=== PATIENT | female | born 1970 | race Asian ===

== ENCOUNTER 2021-06-07 14:50 | Outpatient (REF) | payer MEDICAID, SELFPAY ==
--- NOTE | ~2021-06-07 | MM_ITS ---
EXAMINATION: MM SCREENING DIGITAL BREAST TOMOSYNTHESIS, BILATERAL CLINICAL INFORMATION: Screening. Asymptomatic. The lifetime risk of breast cancer based on the Tyrer-Cuzick Model is 15%. COMPARISON: Mammography: 04/16/2018, 01/22/2017, 12/17/2014 (baseline). TECHNIQUE: Digital breast tomosynthesis is performed in both the craniocaudal and mediolateral oblique views along with computer-aided detection (CAD). Synthesized 2D images are generated from the tomosynthesis. FINDINGS: There are scattered areas of fibroglandular density (ACR BI-RADS breast composition Category b). There is fine fibronodular pattern with scattered shifting fibroglandular parenchymal densities overall similar to prior studies. There is no developing density or significant mass or architectural abnormality or abnormal calcifications. The axilla and skin contours are unremarkable. MM/MM tomosynthesis screening BI IMPRESSION: No mammographic evidence of malignancy. ASSESSMENT: BI-RADS 2: Benign RECOMMENDATION: Routine annual mammography screening. This patient's information was entered into a reminder system with a target due date for their next mammogram.
== END 2021-06-07 14:51 | disposition home or self-care (01) ==
LOC: HO.MAMMO 14:50
PROVIDERS: PCP Internal Medicine; Visit Provider Internal Medicine
DX: Z12.31 Encounter for screening mammogram for malignant neoplasm of breast (principal)
CPT/HCPCS: 77063; 77067

== ENCOUNTER → 2022-01-09 10:08 | Outpatient (BNVA) | payer MEDICAID, SELFPAY | PROVIDERS: PCP Internal Medicine; Visit Provider Nurse Practitioner Family | DX: Z12.11 Encounter for screening for malignant neoplasm of colon (principal); K21.9 Gastro-esophageal reflux disease without esophagitis | CPT/HCPCS: 99202 ==

== ENCOUNTER 2022-06-12 14:47 | Outpatient (REF) | payer MEDICAID, SELFPAY ==
--- NOTE | ~2022-06-12 | MM_ITS ---
EXAMINATION: MM SCREENING DIGITAL BREAST TOMOSYNTHESIS, BILATERAL CLINICAL INFORMATION: Screening. Asymptomatic. The lifetime risk of breast cancer based on the Tyrer-Cuzick Model is 11%. COMPARISON: Mammography: 06/07/2021, 04/16/2018, 01/22/2017, 12/17/2014 TECHNIQUE: Digital breast tomosynthesis is performed in both the craniocaudal and mediolateral oblique views along with computer-aided detection (CAD). Synthesized 2D images are generated from the tomosynthesis. FINDINGS: There are scattered areas of fibroglandular density (ACR BI-RADS breast composition Category b). There are no significant masses, abnormal calcifications, or other abnormalities. No architectural abnormality or developing density or significant change from prior studies. Again, there are scattered minor asymmetries. The axilla and skin contours are unremarkable. MM/MM tomosynthesis screening BI IMPRESSION: No mammographic evidence of malignancy. ASSESSMENT: BI-RADS 2: Benign RECOMMENDATION: Routine annual mammography screening. This patient's information was entered into a reminder system with a target due date for their next mammogram.
== END 2022-06-12 14:48 | disposition home or self-care (01) ==
LOC: HO.MAMMO 14:47
PROVIDERS: PCP Internal Medicine; Visit Provider Internal Medicine
DX: Z12.31 Encounter for screening mammogram for malignant neoplasm of breast (principal)
CPT/HCPCS: 77063; 77067

== ENCOUNTER 2022-09-01 12:46 | Outpatient (REF) | payer MEDICAID, SELFPAY ==
--- NOTE | ~2022-09-01 | US_ITS ---
EXAMINATION: US PELVIS CLINICAL INFORMATION: IUD check, history of fibroids, postmenopausal COMPARISON: None available. TECHNIQUE: Ultrasound of the pelvis is performed using both transabdominal and transvaginal transducers along with Doppler. Transvaginal imaging is performed due to inadequate visualization transabdominally. FINDINGS: Uterus: The uterus is anteverted and measures 7.9 x 3.3 x 4.3 cm. The double wall endometrial thickness is 4 mm. Intrauterine device is in appropriate position within the endometrial canal. The uterus is smooth in contour and has normal myometrial echogenicity. Fundal subserosal fibroid measures 1.3 cm. A lower uterine segment subserosal fibroid measures 2.6 cm. Adnexa: Both ovaries are visualized. There is normal color flow to the adnexa. There is no ovarian torsion. There is no pelvic ascites or fluid collection. Right ovary measures 2.3 x 1.4 x 1.3 cm. Left ovary measures 2.0 x 1.3 x 1.6 cm. US/US pelvic and transvaginal IMPRESSION: * Intrauterine device is in appropriate position within the endometrial canal. * Uterine fibroids.
== END 2022-09-01 12:47 | disposition home or self-care (01) ==
LOC: HO.HMGCX 12:46
PROVIDERS: PCP Internal Medicine; Visit Provider Advanced Practice Midwife
DX: D21.9 Benign neoplasm of connective and other soft tissue, unspecified (principal)
CPT/HCPCS: 76830; 76856

== ENCOUNTER 2022-12-01 07:01 | Day surgery (SDC) | payer MEDICAID, SELFPAY ==
[2022-11-29 12:02] VITALS: BMI 29.8
--- NOTE | 2022-11-30 09:11 | HO.ANESPROP2 ---
Documented by User: Ashley Orourke NP 11/30/22 09:11 HPI - Anesthesia Eval Consult details Narrative: 51yo F for Upper Endoscopy and Colonoscopy [facility] Past Medical History Medical History (Updated 11/29/22 @ 12:01 by Vanessa Perry RN) No known health problems Surgical History Surgical History (Updated 11/29/22 @ 12:00 by Vanessa Perry RN) History of esophagogastroduodenoscopy (EGD) Hx of section Social History Social History (Updated 01/09/22 @ 10:35 by Camilo Lopez) Household Members: Significant Other Alcohol intake: never Patient Tobacco Use Status: Never used Tobacco Tobacco use type: Cigarette Meds Allergies Allergy/AdvReac Type Severity Reaction Status Date / Time No Known Allergies Allergy Verified 01/09/22 10:34 [No Known Allergies*] Exam Exam Date and Time: November 30, 2022 0911 Height,Weight and Vital Signs: Height 5 ft 3 in Weight 76.204 kg Assessment and Plan Assessment Anesthesia Assessment: Chart Reviewed Documented by User: Angi Castro MD 12/01/22 08:22 [facility] Past Medical History Medical History (Updated 11/29/22 @ 12:01 by Vanessa Perry RN) No known health problems Family History Family history of problems with anesthesia: No Surgical History Surgical History (Updated 11/29/22 @ 12:00 by Vanessa Perry RN) History of esophagogastroduodenoscopy (EGD) Hx of section History of Problems with Anesthesia: No Social History Social History (Updated 01/09/22 @ 10:35 by Camilo Lopez) Household Members: Significant Other Alcohol intake: never Patient Tobacco Use Status: Never used Tobacco Tobacco use type: Cigarette Meds Allergies Allergy/AdvReac Type Severity Reaction Status Date / Time No Known Allergies Allergy Verified 01/09/22 10:34 [No Known Allergies*] Exam Airway Mallampati Class: II TM Dist: >3cm Neck ROM: Full Heart: rrr Lungs: cta Assessment and Plan Assessment Anesthesia Assessment: Anesthesia Plan Discussed Final Anesthetic Review Family History of Problems with Anesthesia: No History of Problems with Anesthesia: No NPO: Yes ASA Class: I Final Preanesthetic Review: No Changes in Pt Med Stat, Meds/Allgs Chart Reviewed and Consent Obtained/Reviewed Patient Risk: Intermediate Procedure Risk: Intermediate Anesthetic Plan Anesthetic Plan: MAC: Disposition: Standard PACU
[2022-12-01 07:35] VITALS: BP 122/70; PULSE 86; RESP 16; TEMP 36.8; O2SAT 98; BMI 30.5
[2022-12-01 07:41] VITALS: BMI 30.5
--- NOTE | 2022-12-01 07:53 | MHC.SHP ---
Pre-Procedural Eval Section A Date of Service: 12/01/22 The patient is an INPATIENT: No The History & Physical has been completed within 30 days and I have reviewed it.: No Section B Chief Complaint: gerd,screening, Relevant Family History (Specify if Yes): No Relevant Social History: None Present Medications: see Short Stay Collaborative assessment Medical History: No relevant PMH History of Previous Operations: Relevant previous surgery/procedure and date(s) (Hx of section) Allergies: Allergies Allergy/AdvReac Type Severity Reaction Status Date / Time No Known Allergies Allergy Verified 01/09/22 10:34 [No Known Allergies*] Review of Systems Sugical H&P ROS: Negative: Constitution, Cardiovascular, Respiratory and Gastrointestinal Exam Surgical H&P Exam: Normal: Heart, Normal: Lungs, Normal: Extremities and Normal: Abdomen Plan Diagnosis/Plan: Unchanged I have reviewed the history and physical and performed a pertinent physical examination on my patient. No changes have occurred unless specified. Time Spent With Patient Time: Total time managing care of this patient today ____ minutes.
[2022-12-01] MEDS: Lactated Ringers 1,000 ML 100 ML IVCONT (07:54)
--- NOTE | 2022-12-01 08:31 | P.OP_ITS ---
Operative Note Operative Note Date of Service: 12/01/22 Narrative: FLEXIBLE TRANSORAL UPPER GASTROINTESTINAL ENDOSCOPY WITH BIOPSIES AND COLONOSCOPY TILL CECUM Pre-op diagnosis: Colon cancer screening, GERD, abdominal bloating, history of H pylori infection Post-op diagnosis: Gastritis, gastric ulcer, diverticulosis? Endoscopist:? Jake Costa MD Anesthesia:?MAC UPPER ENDOSCOPY Consent: Indications for the procedure and potential complications of bleeding, perforation, reaction to medications and missed diagnosis were discussed with the patient and informed consent was obtained. Instrument: Olympus GIF H 190 mid size upper endoscope Monitoring: Vital signs and clinical assessment, continuous EKG monitoring, Pulse oximetry, Carbon Dioxide monitoring and blood pressure monitoring were done throughout the procedure. Procedure: The patient was placed in the left lateral decubitis position and pre-procedure medications were administered and a bite block was placed. The endoscope was inserted into the mouth and advanced under direct vision to the third part of duodenum. A careful inspection was made as the upper endoscope was withdrawn including a retroflexed examination of the proximal stomach; Findings and interventions are described below. Findings: Larynx: Normal Esophagus: GE junction at 35 cms. No esophagitis or Bee's. Stomach: Two 6-7 mm ulcers in the gastric antrum - biopsied. Moderate gastric erythema. Biopsies were obtained to check for H pylori. Grade 2 flap valve on retroflexed examination of the cardia. Duodenum: Normal bulb and descending duodenum Intervention: Biopsies as noted above COLONOSCOPY PROCEDURE NOTE Consent: Indications for the procedure and potential complications of bleeding, perforation, reaction to medications and missed diagnosis were discussed with the patient and informed consent was obtained. Instrument: Olympus PCF H 190 L variable stiffness pediatric colonoscope Monitoring: Vital signs and clinical assessment, intermittent blood pressure monitoring, continuous EKG monitoring, Pulse oximetry and Carbon Dioxide monitoring were done throughout the procedure. Colon withdrawl time was 15 minutes. Procedure: The patient was placed in the left lateral decubitis position and pre-procedure medications were administered. After a digital rectal examination of the ano-rectum, the video colonoscope was inserted into the rectum and advanced through the colon to the cecum. The colonoscope was slowly withdrawn in a retrograde panoramic fashion and the colon mucosa was carefully examined including a retroflexed view of the rectum. Findings and interventions are described below. Procedure Difficulty: : Without difficulty Findings: Terminal Ileum: Not evaluated Cecum: Normal Ascending Colon: Normal Transverse Colon: Normal Descending Colon: moderate diverticulosis Sigmoid Colon: Moderate diverticulosis Rectum: Normal Ano-rectum: Normal Colon preparation: Good after copious irrigation Impression and Post Procedure Diagnosis: Endoscopy Findings: STOMACH: Two 6-7 mm ulcers in the gastric antrum - biopsied. Moderate gastric erythema. Biopsies were obtained to check for H pylori. Colonoscopy Findings: No polyps were detected Moderate diverticulosis seen in the left colon Plan: Await pathology results Patient has an appointment on 12/15/22 in the GI [facility] with Rama Prince FNP- [facility]. Repeat Colonoscopy in 10 years. Above findings were reviewed with the patient and PUD and diverticulosis handouts were given in the discharge area Pt advised to start Omeprazole 20 mg daily for gastric ulcer Repeat EGD in 3-4 months to confirm gastric ulcer has healed. (Of Note H pylori stool antigen was checked in Apr, 2018 and was negative).
[2022-12-01 09:22] VITALS: BP 125/80; PULSE 96; RESP 16; TEMP 36.2; O2SAT 97
[2022-12-01 09:37] VITALS: BP 131/75; PULSE 94; RESP 16; TEMP 36.2; O2SAT 99
== END 2022-12-01 10:05 | disposition home or self-care (01) ==
PROVIDERS: PCP Internal Medicine; Visit Provider Internal Medicine Gastroenterology
PROC: (CPT 45378; principal; 2022-12-01 08:30)
DX: Z12.11 Encounter for screening for malignant neoplasm of colon (principal); K57.30 Diverticulosis of large intestine without perforation or abscess without bleeding; K21.9 Gastro-esophageal reflux disease without esophagitis; K29.50 Unspecified chronic gastritis without bleeding; K25.9 Gastric ulcer, unspecified as acute or chronic, without hemorrhage or perforation; Z86.19 Personal history of other infectious and parasitic diseases
CPT/HCPCS: 45378; 43239; 88305; 88342

== ENCOUNTER → 2022-12-01 07:01 | Outpatient (BNV) | payer MEDICAID, SELFPAY | PROVIDERS: PCP Internal Medicine; Visit Provider Internal Medicine Gastroenterology | DX: Z12.11 Encounter for screening for malignant neoplasm of colon (principal); K21.9 Gastro-esophageal reflux disease without esophagitis; K57.30 Diverticulosis of large intestine without perforation or abscess without bleeding; K25.9 Gastric ulcer, unspecified as acute or chronic, without hemorrhage or perforation | CPT/HCPCS: 43239; 45378 ==

== ENCOUNTER 2022-12-15 09:22 | Outpatient (AMB) | payer MEDICAID, SELFPAY ==
[2022-12-15 09:38] VITALS: BP 114/72; PULSE 82; BMI 31.0
--- NOTE | 2022-12-15 09:38 | MHC.OFFVIS ---
Intake Vital Signs 12/15/22 09:38 Height 5 ft 3 in Weight 175 lb 0.752 oz BMI 31.0 BP 114/72 Blood Pressure Location Rt brachial Position Sitting Pulse 82 Intake Visit Reasons: S/p egd/colon-Igor Intake Note: Radha presents in office as a est.patient for a post-op f/u for COLO/EGD pt got it done 12.01.22 PT CC: She c/o abdominal pain after meals. She states she has never had back pain before and has been having lower back pain since after procedure. She reports she is now having 2-3 BMs daily, and she is suddenly gaining weight. [employer] Required: No Accompanied by: Self / Same As Patient Allergies No Known Allergies [No Known Allergies*] Allergy (Verified 01/09/22 10:34) HPI S/p egd/colon-Igor HPI Details LAST VISIT Screen for colon cancer Patient denies any cardiac or respiratory symptoms.? Occasional symptoms of acid reflux, patient uses [id number] famotidine. History of H pylori in 2018, treated with antibiotics. Denies any issues with anesthesia in the past.? Denies any history of sleep apnea.? No history infectious diseases in the past or present.? Not on any anticoagulation therapy.? No family or personal history of colon cancer or polyps.? Patient denies melena, hematochezia, unintentional weight loss or ribbon like stools.? Discussed at length the pre-procedure,? prep, diet & medications as well as what to expect prior, during and after the procedure.?? Stressed the importance of good bowel prep. ?Recommended the use of Vaseline or Calmoseptine OTC & baby wipes with bowel movements to promote comfort.? ?Patient verbalizes understanding and agrees to plan of care.? She was given the opportunity to ask questions and all questions answered.? We will see her after the procedure.? GERD (gastroesophageal reflux disease) Patient reports occasional acid reflux. Patient denies any dyspepsia, dysphagia or odynophagia. Patient reports that she was treated for H pylori in 2018. H pylori was found on upper endoscopy. Patient reports that she is avoiding dietary triggers as much as possible. Occasionally uses [id number]-[id number] famotidine. Discussed with patient the importance of avoiding dietary triggers in late night snacking. Staying upright for minimal 3 hours after meals. Patient will return after colonoscopy and upper endoscopy to see me. I will send her for H pylori testing and we will treat her empirically if positive. Patient is agreeable to this plan and verbalizes understanding of instruction. She was given the opportunity to ask questions and all questions answered. ? Thank you for allowing me to participate in her care Plan Orders Orders H pylori Ag Stool 01/09/22 K21.9 Medications New bisacodyl (Dulcolax (bisacodyl)) take 2 tabs at noon the day before your colonoscopy 10 mg (2 x 5 mg) PO ONCE 1 day 2 tabs 0RF Z12.11 polyethylene glycol 3350 (Miralax) As directed by gastroenterology department at [facility] 238 grams PO ONCE 238 grams 0RF Z12.11 hydrocortisone 2.5% (Proctosol HC) 1 appl PA BID-QID PRN 30 grams 0RF hemorrhoids UPPER ENDOSCOPY AND COLONOSCOPY Findings: Larynx: Normal Esophagus: GE junction at 35 cms. No esophagitis or Bee's. Stomach: Two 6-7 mm ulcers in the gastric antrum - biopsied. Moderate gastric erythema. Biopsies were obtained to check for H pylori. Grade 2 flap valve on retroflexed examination of the cardia. Duodenum: Normal bulb and descending duodenum Intervention: Biopsies as noted above Procedure Difficulty: : Without difficulty Findings: Terminal Ileum: Not evaluated Cecum: Normal Ascending Colon: Normal Transverse Colon: Normal Descending Colon: moderate diverticulosis Sigmoid Colon: Moderate diverticulosis Rectum: Normal Ano-rectum: Normal Colon preparation: Good after copious irrigation Impression and Post Procedure Diagnosis: Endoscopy Findings: STOMACH: Two 6-7 mm ulcers in the gastric antrum - biopsied. Moderate gastric erythema. Biopsies were obtained to check for H pylori. Colonoscopy Findings: No polyps were detected Moderate diverticulosis seen in the left colon Plan: Repeat Colonoscopy in 10 years. Above findings were reviewed with the patient and PUD and diverticulosis handouts were given in the discharge area Pt advised to start Omeprazole 20 mg daily for gastric ulcer Repeat EGD in 3-4 months to confirm gastric ulcer has healed. (Of Note H pylori stool antigen was checked in Apr, 2018 and was negative). PATHOLOGY RESULTS Diagnosis A. Stomach, antrum, biopsy: Antral-type mucosa with mild chronic inactive inflammation; no Helicobacter organisms seen. B. Stomach, ulcer, biopsy: Antral-type mucosa with chronic inflammation, regenerative changes and erosion; no Helicobacter organisms seen. TODAY'S VISIT Patient is here today for follow-up and to discuss upper endoscopy and colonoscopy results. Diagnosed with PUD on upper endoscopy. Patient reports that she has been avoiding spices for a long time. As mentioned above patient did had H pylori few years ago and was treated. Stool antigen checked in 2019 and it was negative for H pylori. Patient reports dyspepsia without dysphagia or odynophagia. Patient reports that she will occasionally have loose stools, frequent feeling of bloating. Patient reports low back pain, denies any injuries. Patient denies melena, hematochezia, unintentional weight loss or ribbon like stools. PFS Medical History (Updated 12/15/22 @ 12:57 by Rama Prince [facility]) No known health problems Surgical History (Updated 12/14/22 @ 09:17 by Camilo Lopez) Hx of colonoscopy History of esophagogastroduodenoscopy (EGD) Hx of section Social History (Updated 01/09/22 @ 10:35 by Camilo Lopez) Household Members: Significant Other Alcohol intake: never Patient Tobacco Use Status: Never used Tobacco Tobacco use type: Cigarette Review of Systems Const Denies weight gain and Denies weight loss ENT Reports no additional complaints, Denies dysphagia and Denies odynophagia Card Reports no additional complaints Resp Reports no additional complaints GI Denies abdominal pain, Denies belching, Denies melena, Reports bloating, Denies dysphagia, Denies excessive flatus, Reports dyspepsia, Reports heartburn, Denies diarrhea, Reports loose stools, Denies nausea, Denies odynophagia and Denies vomiting Reports no additional complaints Musc Reports no additional complaints Neuro Reports no additional complaints Psych Reports no additional complaints Endo Reports no additional complaints Physical Exam Vital Signs: Last Vital Signs Pulse 82 12/15/22 09:38 BP 114/72 12/15/22 09:38 BMI result Body Mass Index 31.0 Const General: healthy appearing, no acute distress and well developed Nutritional Appearance: obese Orientation/consciousness: patient oriented x3 HEENT Head: Yes normal to inspection, Yes normocephalic and Yes atraumatic Face and sinus: Yes normal facial exam Mouth: Normal oral and palatal mucosa present Throat: Yes posterior oropharynx normal, Yes tonsils normal and Yes uvula midline Eyes General: appearance normal, both eyes and all related structures Neck Neck: Yes normal visual inspection, Yes full ROM and Yes trachea midline Thyroid: Thyroid normal Resp Effort & Inspection: normal respiratory effort, able to speak in complete sentences, no tracheal deviation and symmetric chest movement Auscultation: clear to auscultation bilaterally Cardio Rate: regular rate Heart sounds: S1 normal heart sound present and S2 normal heart sound present GI Inspection: Yes normal to inspection, No distended and Yes obesity Palpation (GI): Soft to palpation, not firm, nontender and No hepatosplenomegaly present Auscultation: normal bowel sounds General: Yes no CVA tenderness Back/Spine/Pelvis Back: no CVA tenderness Skin General skin exam: elasticity normal, turgor normal and dry skin Neuro General: patient oriented x3 Psych Appearance: grossly normal Mental Status: mental status grossly normal Speech and movement: Normal speech and movement present Assessment & Plan Assessment & Plan (1) Gastroesophageal reflux disease: Code(s): K21.9 - Gastro-esophageal reflux disease without esophagitis Qualifiers: Esophagitis presence: without esophagitis Qualified Code(s): K21.9 - Gastro-esophageal reflux disease without esophagitis Plan: Continue omeprazole every morning. Discussed with patient avoiding dietary triggers and late night snacking. Staying upright for minimal 3 hours after meals discussed with patient. (2) Gastric ulcer: Code(s): K25.9 - Gastric ulcer, unspecified as acute or chronic, without hemorrhage or perforation Qualifiers: Gastric ulcer chronicity: chronic Gastric ulcer complication status: without hemorrhage or perforation Qualified Code(s): K25.7 - Chronic gastric ulcer without hemorrhage or perforation Plan: Will add sucralfate at bedtime. Patient was encouraged avoiding NSAIDs and spicy food. (3) Status post colonoscopy: Code(s): Z98.890 - Other specified postprocedural states Plan: Patient denies any ill effects from the prep, anesthesia or procedure itself. Colonoscopy in 10 years no polyps found. However patient does reports of lower back pain questioning if this is due to her lying on one side for prolonged period of time. Mild tenderness to lumbar paraspinal muscles. Will send patient script for cyclobenzaprine and patient will follow-up with her PCP. I will see her in 4 weeks, sooner on as needed basis. Patient is agreeable to this plan and verbalizes understanding of instructions. She was given the opportunity to ask questions and all questions answered. Thank you for allowing me to participate in her care Medications: New cyclobenzaprine 5 mg PO BEDTIME PRN 10 tabs 0RF muscle spasm sucralfate 1 g PO BEDTIME 30 tabs 4RF R19.7 - Diarrhea, unspecified Coding Level of Care Code Est Pt Level 4 (44917) Diagnoses Gastroesophageal reflux disease without esophagitis K21.9 Esophagitis presence: without esophagitis Chronic gastric ulcer without hemorrhage and without perforation K25.7 Gastric ulcer chronicity: chronic Gastric ulcer complication status: without hemorrhage or perforation Status post colonoscopy Z98.890 Time Spent (min) 35 Comment 20 minutes spent with patient and additional 15 minutes spent reviewing her records
== END 2022-12-15 10:07 | disposition home or self-care (01) ==
PROVIDERS: PCP Internal Medicine; Visit Provider Nurse Practitioner Family
DX: K21.9 Gastro-esophageal reflux disease without esophagitis (principal); K25.7 Chronic gastric ulcer without hemorrhage or perforation; Z98.890 Other specified postprocedural states
CPT/HCPCS: 99214

== ENCOUNTER → 2022-12-15 09:22 | Outpatient (BNVA) | payer MEDICAID, SELFPAY | PROVIDERS: PCP Internal Medicine; Visit Provider Nurse Practitioner Family | DX: K57.30 Diverticulosis of large intestine without perforation or abscess without bleeding (principal); K21.9 Gastro-esophageal reflux disease without esophagitis; K25.7 Chronic gastric ulcer without hemorrhage or perforation; Z98.890 Other specified postprocedural states | CPT/HCPCS: 99212 ==

== ENCOUNTER 2023-01-17 09:47 | Outpatient (AMB) | payer MEDICAID, SELFPAY ==
--- NOTE | 2023-01-17 09:49 | A.OFFVIS_ITS ---
Intake Vital Signs 01/17/23 09:51 Height 5 ft 3 in Weight 176 lb 12.972 oz BMI 31.3 BP 126/76 Blood Pressure Location Rt brachial Position Sitting Pulse 85 Pulse Source Pulse Oximeter Intake Visit Reasons: per izabella 1m Allergies No Known Allergies [No Known Allergies*] Allergy (Verified 01/17/23 09:52) HPI per izabella 1mth HPI Details LAST VISIT Gastroesophageal reflux disease Continue omeprazole every morning. Discussed with patient avoiding dietary triggers and late night snacking. Staying upright for minimal 3 hours after meals discussed with patient. Gastric ulcer Will add sucralfate at bedtime. Patient was encouraged avoiding NSAIDs and spicy food. Status post colonoscopy Patient denies any ill effects from the prep, anesthesia or procedure itself. Colonoscopy in 10 years no polyps found. However patient does reports of lower back pain questioning if this is due to her lying on one side for prolonged period of time. Mild tenderness to lumbar paraspinal muscles. Will send patient script for cyclobenzaprine and patient will follow-up with her PCP. I will see her in 4 weeks, sooner on as needed basis. Patient is agreeable to this plan and verbalizes understanding of instructions. She was given the opportunity to ask questions and all questions answered. TODAY'S VISIT: Patient reports that she has been feeling little better, however she continues to have dyspepsia depending on the food that she eats. Patient denies dysphagia or odynophagia. Patient is trying to avoid dietary triggers. It is hard to do that for her as patient does the cooking at home for the whole family. She is taking pantoprazole in the morning and sucralfate at bedtime and she feels like it is helping. Patient continues to have low back pain. Patient reports that she has not spoken to her PCP about it. She was encouraged to discuss that with him so she can be sent for x-rays or maybe even MRI. Patient states that cyclobenzaprine help when she took it. Patient denies any nausea or vomiting. Denies any melena, hematochezia, unintentional weight loss or ribbon like stools. Patient denies any abdominal pain or discomfort. Reports that she is moving her bowels better. [facility] Medical History (Updated 12/15/22 @ 12:57 by Rama Prince, [facility]) No known health problems Surgical History (Updated 12/14/22 @ 09:17 by Camilo Lopez) Hx of colonoscopy History of esophagogastroduodenoscopy (EGD) Hx of section Social History Household Members: Significant Other Alcohol intake: never Patient Tobacco Use Status: Never used Tobacco Tobacco use type: Cigarette Review of Systems Const Denies weight gain and Denies weight loss ENT Reports no additional complaints, Denies dysphagia and Denies odynophagia Card Reports no additional complaints Resp Reports no additional complaints GI Denies abdominal pain, Denies belching, Denies melena, Reports bloating, Denies change in bowel habits, Denies dysphagia, Denies excessive flatus, Reports dyspepsia, Reports heartburn, Denies diarrhea, Denies loose stools, Denies nausea, Denies odynophagia and Denies vomiting Reports no additional complaints Musc Details: back pain Neuro Reports no additional complaints Psych Reports no additional complaints Endo Reports no additional complaints Physical Exam Vital Signs: Last Vital Signs Pulse 85 01/17/23 09:51 BP 126/76 01/17/23 09:51 BMI result Body Mass Index 31.3 Const General: healthy appearing, no acute distress and well developed Nutritional Appearance: obese Orientation/consciousness: patient oriented x3 HEENT Head: Yes normal to inspection, Yes normocephalic and Yes atraumatic Face and sinus: Yes normal facial exam Mouth: Normal oral and palatal mucosa present Throat: Yes posterior oropharynx normal, Yes tonsils normal and Yes uvula midline Eyes General: appearance normal, both eyes and all related structures Neck Neck: Yes normal visual inspection, Yes full ROM and Yes trachea midline Thyroid: Thyroid normal Resp Effort & Inspection: normal respiratory effort, able to speak in complete sentences, no tracheal deviation and symmetric chest movement Auscultation: clear to auscultation bilaterally Cardio Rate: regular rate Heart sounds: S1 normal heart sound present and S2 normal heart sound present GI Inspection: Yes normal to inspection, No distended and Yes obesity Palpation (GI): Soft to palpation, not firm, nontender and No hepatosplenomegaly present Auscultation: normal bowel sounds General: Yes no CVA tenderness Back/Spine/Pelvis Back: no CVA tenderness Skin General skin exam: elasticity normal, turgor normal and dry skin Neuro General: patient oriented x3 Psych Appearance: grossly normal Mental Status: mental status grossly normal Assessment & Plan Assessment & Plan (1) Gastroesophageal reflux disease: Code(s): K21.9 - Gastro-esophageal reflux disease without esophagitis Qualifiers: Esophagitis presence: without esophagitis Qualified Code(s): K21.9 - Gastro-esophageal reflux disease without esophagitis (2) Gastric ulcer: Code(s): K25.9 - Gastric ulcer, unspecified as acute or chronic, without hemorrhage or perforation Qualifiers: Gastric ulcer chronicity: chronic Gastric ulcer complication status: without hemorrhage or perforation Qualified Code(s): K25.7 - Chronic gastric ulcer without hemorrhage or perforation (3) Back pain: Code(s): M54.9 - Dorsalgia, unspecified Qualifiers: Back pain laterality: left Back pain location: low back pain Chronicity: acute Sciatica presence: unspecified whether sciatica present Qualified Code(s): M54.50 - Low back pain, unspecified Plan: Patient continues with left lower back pain. Possibility that this is related to her being in one position for prolonged time. Patient was advised to see chiropractor and follow-up with PCP for maybe x-rays or MRI. Plan Continue current therapy with pantoprazole and sucralfate. Reports occasional postprandial abdominal bloating discussed with patient diet changes. Low FODMAP diet discussed with patient. List of food recommended as well as list of food to avoid given to patient. I will see patient in March. Patient has an appointment made already. I will see her sooner on as needed basis. Patient is agreeable to this plan and verbalizes understanding of instructions. She was given the opportunity to ask questions and all questions answered. Thank you for allowing me to participate in her care Coding Level of Care Code Est Pt Level 4 (18640) Diagnoses Gastroesophageal reflux disease without esophagitis K21.9 Esophagitis presence: without esophagitis Chronic gastric ulcer without hemorrhage and without perforation K25.7 Gastric ulcer chronicity: chronic Gastric ulcer complication status: without hemorrhage or perforation Acute left-sided low back pain, unspecified whether sciatica present M54.50 Back pain laterality: left Back pain location: low back pain Chronicity: acute Sciatica presence: unspecified whether sciatica present Time Spent (min) 35 Comment 20 minutes spent with patient and additional 15 minutes spent reviewing her records
[2023-01-17 09:51] VITALS: BP 126/76; PULSE 85; BMI 31.3
== END 2023-01-17 10:24 | disposition home or self-care (01) ==
PROVIDERS: PCP Internal Medicine; Visit Provider Nurse Practitioner Family
DX: K21.9 Gastro-esophageal reflux disease without esophagitis (principal); K25.7 Chronic gastric ulcer without hemorrhage or perforation; M54.50 Low back pain, unspecified
CPT/HCPCS: 99214

== ENCOUNTER → 2023-01-17 09:47 | Outpatient (BNVA) | payer MEDICAID, SELFPAY | PROVIDERS: PCP Internal Medicine; Visit Provider Nurse Practitioner Family | DX: K21.9 Gastro-esophageal reflux disease without esophagitis (principal); K25.7 Chronic gastric ulcer without hemorrhage or perforation; M54.50 Low back pain, unspecified | CPT/HCPCS: 99212 ==

== ENCOUNTER 2023-06-18 14:45 | Outpatient (REF) | payer MEDICAID, SELFPAY | END 2023-06-18 14:46 | disposition home or self-care (01) | LOC: HO.MAMMO 14:45 | PROVIDERS: PCP Internal Medicine; Visit Provider Internal Medicine | DX: Z12.31 Encounter for screening mammogram for malignant neoplasm of breast (principal) | CPT/HCPCS: 77063; 77067 ==

== ENCOUNTER → 2023-06-18 15:00 | Outpatient (BNV) | payer MEDICAID, SELFPAY | PROVIDERS: PCP Internal Medicine; Visit Provider Radiology Diagnostic Radiology | DX: Z12.31 Encounter for screening mammogram for malignant neoplasm of breast (principal) | CPT/HCPCS: 77063; 77067 ==

== ENCOUNTER 2023-11-29 08:50 | Outpatient (REF) | payer MEDICAID, SELFPAY ==
[2023-11-29 14:21] LABS: MANUAL DIFF FLAG NO
[2023-11-29 14:38] LABS: Basophils Absolute Auto 0.1 X10*3/uL (0.0-0.2); Basophils Percent Auto 0.9 % (0-2); Eosinophils Absolute Auto 0.5 X10*3/uL (0.0-0.4); Eosinophils Percent Auto 6.5 % (0-4); Hematocrit 38.2 % (37.0-47.0); Hemoglobin 12.6 g/dl (12.0-16.0); Imm Gran Abs Auto 0.02 X10*3/uL (0.00-0.03); Imm Gran Pct Auto 0.3 % (0.0-0.4); Lymphocytes Absolute Auto 2.5 X10*3/uL (1.2-4.9); Lymphocytes Percent Auto 33.9 % (20-40); Mean Corpuscular Hemoglobin 30.5 pg (27.0-33.0); Mean Corpuscular Volume 92.5 fL (80.0-98.0); Mean Platelet Volume 10.9 fL (9.4-12.3); Monocytes Absolute Auto 0.5 X10*3/uL (0.1-1.2); Monocytes Percent Auto 6.7 % (2-11); Neutrophils Absolute Auto 3.8 x10*3/uL (2.0-8.3); Neutrophils Percent Auto 51.7 % (45-73); Platelet Count 288 X10*3/uL (160-400); Red Blood Count 4.13 X10*6/uL (4.20-5.50); Red Cell Distribution Width 12.6 % (11.0-16.0); White Blood Count 7.4 X10*3/uL (4.8-10.8)
[2023-11-29 14:48] LABS: Anion Gap 14 (12-20); Blood Urea Nitrogen 13 mg/dL (9-16); Carbon Dioxide 26 mmol/L (22-29); Chloride 105 mmol/L (96-108); Cholesterol 226 mg/dL (<200); Estimated Glomerular Filt Rate > 60; Glucose Random 84 mg/dL (60-115); HDL Cholesterol 56 mg/dL (>40); LDL Cholesterol Calculated 140 mg/dL (<100); Potassium 4.6 mmol/L (3.3-5.1); Sodium 140 mmol/L (135-145); Triglycerides 153 mg/dL (<150)
== END 2023-11-29 08:51 | disposition home or self-care (01) ==
LOC: HO.CHCLDS 08:50
PROVIDERS: Visit Provider Internal Medicine
DX: K25.9 Gastric ulcer, unspecified as acute or chronic, without hemorrhage or perforation (principal); E78.2 Mixed hyperlipidemia
CPT/HCPCS: 36415; 80048; 80061; 85025

== ENCOUNTER 2024-06-23 14:52 | Outpatient (REF) | payer OTHER, SELFPAY ==
--- OUTSIDE RECORDS SUMMARY | 2024-06-23 17:26 | XMS_ITS | Encounter Summary ---
Author Organization [employer] Address [address] [place] [address] 7 [place] [address] Care Team Providers Care Certified Medication Aide Name Role Phone Ivana May MD Primary Care Provider [phone] Encounter Details Date Type Department Care Team ([facility] st Contact Info) Description 06/07/2022 Orders Only [facility] [address] [place] [address] Terese Ricks LPN Social History Tobacco Use Types Packs/Day Years Used Date Smoking Tobacco: Never Assessed Comments Unknown Sex and Gender Information Value Date Recorded Sex Assigned at Female 02/06/2022 10:28 AM EDT Legal Sex Female 10:28 AM EDT Gender Identity Female 02/06/2022 10:28 AM EDT Sexual Orientation Straight 02/06/2022 10 :28 AM EDT documented as of this encounter Plan of Treatment Not on file documented as of this encounter Procedures Procedure Name Priority Date/Time Associated Diagnosis Comments BI MAMMOGRAM SCREENING TOMOSYNTHESIS BILATERAL Routine 06/12/2022 3:12 PM EST documented in this encounter Results * BI Mammogram Screening Tomosynthesis Bilateral (06/12/2022 3:12 PM EST) Anatomical Region Laterality Modality Breast Bilateral Mammography 06/12/2022 3:12 PM EST Narrative 06/14/2022 12:24 PM EST ? [facility] ? [address] ?[place] [address] ? Mammography Report ? Signed ? Patient: Katey,Radha ?MR#: [id number] ?? 55 ? : 1970 ?Acct:[id number] ? Age/Sex: 51 / F ?ADM Date: 06/12/22 ? Loc: HO.MAMMO ? Attending Dr: Ivana May MD ? Ordering Physician: Ivana May MD ?Results: 2 ?? Benign Findings ? Date of Service: 06/12/22 ?Follow Up: 1 Year From Orig ?? inal Mammogram ? Procedure(s): MM tomosynthesis screening BI ?? Accession Number(s): [id number] ? cc: Ivana May MD ? EXAMINATION: ?? MM SCREENING DIGITAL BREAST TOMOSYNTHESIS, BILATERAL ? CLINICAL INFORMATION: ? Screening. Asymptomatic. ? The lifetime risk of breast cancer based on the Tyrer-Cuzick Model is ?? 11%. ? COMPARISON: ?? Mammography: 06/07/2021, 04/16/2018, 01/22/2017, 12/17/2014 ? TECHNIQUE: ?? Digital breast tomosynthesis is performed in both the craniocaudal and ?? mediolateral oblique views along with computer-aided detection (CAD). ?? Synthesized 2D images are generated from the tomosynthesis. ? FINDINGS: ?? There are scattered areas of fibroglandular density (ACR BI-RADS breast ?? composition Category b). ? There are no significant masses, abnormal calcifications, or other ?? abnormalities. ??No architectural abnormality or developing density or ?? significant change from prior studies. Again, there are scattered minor ?? asymmetries. The axilla and skin contours are unremarkable. ? MM/MM tomosynthesis screening BI ?? IMPRESSION: ?? No mammographic evidence of malignancy. ? ASSESSMENT: ? BI-RADS 2: Benign ? RECOMMENDATION: ?? Routine annual mammography screening. ? This patient's information was entered into a reminder system with a ?? target due date for their next mammogram. ? Dictated By: ?Kali Luo MD ? Signed By: ?<Electronically signed by Kali Luo MD in OV> ?06/14/22 1221 ? DD/ 1512 ? TD/TT: ? Regional Vice President Surgical Sales: FREIRE ? Procedure Note Donfoxinterpreter, Image - 06/14/2022 [facility] [address] [place] [address] Mammography Report Signed Patient: Jose M Del Toro#: [id number] 55 : 1970Acct:[id number] Age/Sex: 51 / FADM Date: 06/12/22 Loc: HO.MAMMO Attending Dr: Ivana May MD Ordering Physician: Ivana May MDResults: 2 Benign Findings Date of Service: 06/12/22Follow Up: 1 Year From Orig [facility] Mammogram Procedure(s): MM tomosynthesis screening BI Accession Number(s): [id number] cc: Ivana May MD EXAMINATION: MM SCREENING DIGITAL BREAST TOMOSYNTHESIS, BILATERAL CLINICAL INFORMATION: Screening. Asymptomatic. The lifetime risk of breast cancer based on the Tyrer-Cuzick Model is 11%. COMPARISON: Mammography: 06/07/2021, 04/16/2018, 01/22/2017, 12/17/2014 TECHNIQUE: Digital breast tomosynthesis is performed in both the craniocaudal and mediolateral oblique views along with computer-aided detection (CAD). Synthesized 2D images are generated from the tomosynthesis. FINDINGS: There are scattered areas of fibroglandular density (ACR BI-RADS breast composition Category b). There are no significant masses, abnormal calcifications, or other abnormalities. No architectural abnormality or developing density or significant change from prior studies. Again, there are scattered minor asymmetries. The axilla and skin contours are unremarkable. MM/MM tomosynthesis screening BI IMPRESSION: No mammographic evidence of malignancy. ASSESSMENT: BI-RADS 2: Benign RECOMMENDATION: Routine annual mammography screening. This patient's information was entered into a reminder system with a target due date for their next mammogram. Dictated By: Kail Luo MD Signed By: <Electronically signed by Kali Luo MD in OV> 06/14/22 1221 DD/ 1512 TD/TT: Regional Vice President Surgical Sales: FREIRE [facility] External Provider IMG BI PROCEDURES Final Result documented in this encounter Visit Diagnoses Not on filedocumented in this encounter Care Teams Certified Medication Aide Relationship Specialty Start Date End Date Ivana May MD [address] [place] [id number] PCP - General Internal Medicine 09/16/18 documented as of this encounter
--- OUTSIDE RECORDS SUMMARY | 2024-06-23 17:26 | XMS_ITS | Encounter Summary ---
Author Organization [employer] Address [address] [place] [address] [place] [address] Care Team Providers Care Program Project Manager Name Role Phone Ivana May MD Primary Care Provider [phone] Encounter Details Date Type Department Care Team (Latest Contact Info) Description 03/15/2021 Abstract [facility] CONVERSIONS Dental, Provider, DDS Social History Tobacco Use Types Packs/Day Years [...] on file documented as of this encounter Visit Diagnoses Not on filedocumented in this encounter Care Teams Program Project Manager Relationship Specialty Start Date End Date Ivana May MD [address] [facility] [place] [id number] PCP - General Internal Medicine 09/16/18 documented as of this encounter
--- OUTSIDE RECORDS SUMMARY | 2024-06-23 17:26 | XMS_ITS | Encounter Summary ---
Author Organization [employer] Address [address] [place] [address] [place] [address] Care Team Providers Care Staple Processing Machine Operator Name Role Phone Ivana May MD Primary Care Provider [phone] Reason for Referral * Consultation (Routine) - Closed Specialty Diagnoses / Procedures Referred By Contac t Referred To Contact Optometry Diagnoses Blurry vision, bilateral Ivana May MD [address] [place] [address] Phone: tel: fax: [facility] [address] [place] [phone] Phone: tel: fax: Referral ID Status Reason Start Date Expiration Date V isits Requested Visits Authorized [id number] Closed Consult and Treat 07/12/2023 07/11/2024 1 1 Encounter Details Date Type Department Care Team (Late st Contact Info) Description 07/12/2023 Orders Only [facility] [address] [place], [place] [phone] Ivana May MD [address] [place], [place] [phone] Blurry vision, bilateral (Primary Dx) Social History Tobacco Use Types Packs/Day Years Used Date Smoking Tobacco: Never Passive Smoke Exposure: Never Smokeless Tobacco: Never Alcohol Use Standard Drinks/Week Comments Yes 1 (1 standard drink = 0.6 oz pur e alcohol) Housing Stability Answer Date Recorded What is your housing situation today? I have chad washburn 06/21/[address] you li ve. Do you have problems with any of the following? None of the above 06/21/2023 Food Insecurity Answer Date Recorded Within the past 12 months, y ou worried that your food would run out before you got money to buy more: Never True 06/21/2023 Within the past 12 months,th e food you bought just didn't last and you didn't have enough money to get more: Never True Transportation Answer Date Recorded In the past 12 months, has l ack of transportation kept you from medical appts, meetings, work or from getting things needed for daily living? No 06/21/2023 Utilities Answer Date Recorded In the past 12 months, has t he electric, gas, oil or water company threatened to shut off services in your home? No 06/21/2023 Comments Unknown Sex and Gender Information Value Date Recorded Sex Assigned at Female 02/06/2022 10:28 AM EDT Legal Sex Female 10:28 AM EDT Gender Identity Female 02/06/2022 10:28 AM EDT Sexual Orientation Straight 02/06/2022 10 :28 AM EDT documented as of this encounter Plan of Treatment Scheduled Referrals Name Type Priority Associated Diagnoses Orde r Schedule Referral to [facility] Outpatient Referral Routine Blurry vision, bilateral Expected: 07/12/2023 (Approximate), Expires: 07/11/2024 documented as of this encounter Visit Diagnoses Diagnosis Blurry vision, bilateral- Primary Other specified visual disturbances documented in this encounter Care Teams Staple Processing Machine Operator Relationship Specialty Start Date End Date Ivana May MD [address] [place] [id number] PCP - General Internal Medicine 09/16/18 documented as of this encounter
--- OUTSIDE RECORDS SUMMARY | 2024-06-23 17:26 | XMS_ITS | Clinical Summary ---
Author Organization [employer] Address [address] [place] [address] 7 [place] [address] Care Team Providers Care Purse Maker Name Role Phone Ivana May MD Primary Care Provider Allergies No known active allergies Medications acetaminophen (Tylenol) 500 MG tablet Take 2 tablets by mouth in the morning and 2 tablets at noon and 2 tablets in the evening and 2 tablets before bedtime. 1 Active famotidine (Pepcid) 20 MG tablet Take 1 tablet by mouth. 2 Active Neomycin-Polymy errol-HC 1 % solution 4 drops every 6 (six) hours. 1 Active omega-3 (Fish Oil) 1000 MG capsule 1 capsule 2 times a day 1 Active Tretinoin (Altreno) 0.05 % lotion Apply topically at bed time. 2 Active valACYclovir (Valtrex) 1 g tablet take 1 tablet by oral route once a day x 5 days 2 Active fluconazole (Diflucan) 150 MG tablet TAKE ONE TABLET BY MOUTH ONCE DIRECTED. 2 tablet 2 3 Active cetirizine (ZyrTEC) 10 MG tablet TAKE ONE TABLET BY MOUTH EVERY DAY 30 tablet 5 3 Active Chlorhexidine Gluconate (Hibiclens) 4 % solutionIndicat ions:Folliculit is Wash with ~5 mL for 15 seconds; rinse thoroughly with water and dry 2 times a day 118 mL 4 Active Allergy Relief 180 MG tabletIndicatio ns:Other seasonal allergic rhinitis TAKE ONE TABLET DAILY 90 tablet 1 4 Active cholecalciferol VITAMIN D (Vitamin D-3) 50 MCG (1999 UT) capsule TAKE ONE CAPSULE EVERY DAY 90 capsule 1 4 Active Active Problems Problem Noted Date Diagnosed Date Mixed hyperlipidemia 09/07/2022 Gastroesophageal reflux disease without esophagi tis 01/01/2018 Plantar fasciitis 01/01/2018 Varicose veins of lower extremity 01/01/2018 Abnormal perimenopausal bleeding 01/01/2018 Immunizations Name Administration Dates Next Due Influenza Injectable Quadriv alant Preservative Free IIV4 MDCK 01/18/2023 Influenza injectable quadriv alent IIV4 with preservative 01/28/2019 Influenza injectable quadriv alent preservative free 01/12/2022,12/31/2020,01/15/2020 Influenza, Injectable, MDCK, preservative free 02/25/2024 Zoster, Recombinant 01/02/2022,09/01/2021 Family History Medical History Relation Name Comments Throat cancer Maternal Grandfather Breast cancer Mother Relation Name Status Comments Maternal Grandfather Mother Social History Tobacco Use Types Packs/Day Years Used Date Smoking Tobacco: Never Passive Smoke Exposure: Never Smokeless Tobacco: Never Tobacco Cessation:Counseling Given: Not Answered Alcohol Use Standard Drinks/Week Comments Yes 1 [...] Orientation Straight 02/06/2022 10 :28 AM EDT Last Filed Vital Signs Vital Sign Reading Time Taken Comments Blood Pressure 122/78 09/25/2023 12:58 PM EDT Pulse 91 09/25/2023 12:58 PM EDT Temperature 37.5 ??C (99.5 ??F) 09/25/2023 12:58 PM E DT Respiratory Rate 19 09/25/2023 12:58 PM EDT Oxygen Saturation 99% 09/25/2023 12:58 PM EDT Inhaled Oxygen Concentration - - Weight 77.6 kg (171 lb) 09/25/2023 12:58 PM EDT Height 160 cm (5' 3 ) 09/25/2023 12:58 PM EDT Body Mass Index 30.29 09/25/2023 12:58 PM EDT Plan of Treatment Health Maintenance Due Date Last Done Comments CT Colonography 1969 Colonoscopy 1969 Colorectal Cancer Screening 1969 Depression Screening 1969 FIT DNA/Cologuard 1969 FIT 1969 FOBT 1969 HIV Screening 1969 Sigmoidoscopy 1969 Alcohol/Substance Use Screening 1981 DTaP/Tdap/Td Vaccines (1 - Tdap) 1988 Hepatitis B Vaccines (1 of 3 - 19+ 3-dose series) 1988 Dental X-Ray: Full Mouth 12/18/2017 12/17/2014 Pneumococcal Vaccine: 50+ Years (1 of 1 - PCV) 12/04/2019 Dental Oral Exam 05/21/2022 11/17/2021, , 07/05/2015, Additional history exists Dental Prophylaxis 03/04/2023 08/31/2022, 1 05/16/2020, 07/05/2015, Additional history exists Dental X-Ray: Bitewings 09/02/2023 09/01/19 23, 11/17/2021, 03/15/2021, Additional history exists COVID-19 Vaccine (5 - 2024-25 season) 2023 02/18/2022, 03/06/2021, 08/18/2020, Additional history exists SDOH Screening 06/20/2024 06/21/2023 Tobacco Screening 09/24/2024 09/25/2023 Mammogram 06/17/2025 06/18/2023, 03/0 09/2022, 06/07/2021, Additional history exists Pap Smear 08/22/2025 08/22/2022 Cervical Cancer Screening 08/23/2027 HPV/Cotest 08/23/2027 08/22/2022, 02/26/2018 RSV Patients and Patients Aged 60 years or older (1 - 1-dose 75+ series) 2044 Hepatitis C Screening Completed 09/02/2021 Zoster Vaccines Completed 01/02/2022, 09/01/2021 Influenza Vaccine Completed 02/25/2024, , 01/12/2022, Additional history exists HIB Vaccines Aged Out No longer eligi ble based on patient's age to complete this topic HPV Vaccines Aged Out No longer eligi ble based on patient's age to complete this topic Hepatitis A Vaccines Aged Out No long er eligible based on patient's age to complete this topic IPV Vaccines Aged Out No longer eligi ble based on patient's age to complete this topic Meningococcal Vaccine Aged Out No keri yang eligible based on patient's age to complete this topic RSV under 20 months Aged Out No longe r eligible based on patient's age to complete this topic Rotavirus Vaccines Aged Out No longer eligible based on patient's age to complete this topic Procedures Procedure Name Priority Date/Time Associated Diagnosis Comments BI MAMMOGRAM SCREENING TOMOSYNTHESIS BILATERAL Routine 06/18/2023 3:05 PM EDT PROPHYLAXIS - ADULT Routine 08/31/2022 1 :00 PM EDT BITEWING - SINGLE RADIOGRAPHIC IMAGE Routine 08/31/2022 1:00 PM EDT IMAGE-GUIDED PAP W/AGE BASED SCR PROTOCOLS Routine 08/22/2022 10:15 AM EDT Cervical cancer screening PERIODIC ORAL EVALUATION - ESTABLISHED PATIENT Routine 11/17/2021 12:00 AM EDT NATHALIE HISTORICAL HEPATITIS C AB W/REFL TO HCV RNA, QN, PCR Routine 09/02/2021 8:33 AM EDT INTRAORAL - COMPLETE SERIES OF RADIOGRAPHIC IMAGES Routine 12/17/2014 12:00 AM EDT from Last 3 Months or Most Recently Relevant to Health Maintenance Results * BI Mammogram Screening Tomosynthesis Bilateral (06/18/2023 3:05 PM EDT) Anatomical Region Laterality Modality Breast Bilateral Mammography 06/18/2023 3:05 PM EDT Narrative 07/14/2023 11:05 AM EDT ? [facility] ? [address] ?[place], [place] [address] ? Mammography Report ? Signed ? Patient: Katey,Radha ?MR#: [id number] ?? 55 ? : 1970 ?Acct:[id number] ? Age/Sex: 52 / F ?ADM Date: 06/18/23 ? Loc: HO.MAMMO ? Attending Dr: Ivana May MD ? Ordering Physician: Ivana May MD ?Results: 1 ?? Negative ? Date of Service: 06/18/23 ?Follow Up: 1 Year From Orig ?? inal Mammogram ? Procedure(s): MM tomosynthesis screening BI ?? Accession Number(s): [id number] ? cc: vIana May MD ? EXAMINATION: ?? MM SCREENING DIGITAL BREAST TOMOSYNTHESIS, BILATERAL ? CLINICAL INFORMATION: ? Screening. Asymptomatic. ? COMPARISON: ?? Mammography: This study is compared with prior exams dating back to ?? 2019. ? TECHNIQUE: ?? Digital breast tomosynthesis is performed in both the craniocaudal and ?? mediolateral oblique views along with computer-aided detection (CAD). ?? Synthesized 2D images are generated from the tomosynthesis. ? FINDINGS: ?? There are scattered areas of fibroglandular density (ACR BI-RADS breast ?? composition Category b). ? There are no significant masses, abnormal calcifications, or other ?? abnormalities. ? MM/MM tomosynthesis screening BI ?? IMPRESSION: ?? No mammographic evidence of malignancy. ? ASSESSMENT: ? BI-RADS BI-RADS 1 - Negative ? RECOMMENDATION: ?? Routine annual mammography screening. ? 1 year F/U ? This examination should not preclude the clinical evaluation of a ?? suspicious palpable abnormality. ? This patient's information was entered into a reminder system with a ?? target due date for their next mammogram. ? Dictated By: ?Jo-Ann Arnold MD ? Signed By: ?<Electronically signed by Jo-Ann Arnold MD in OV> ? 07/14/23 1101 ? DD/ 1505 ? TD/TT: ? Optoelectronics Engineer: ? Procedure Note Sean Francis - 07/14/2023 [facility] [address] [place] [address] [place] [address] Mammography Report Signed Patient: Radha Del Toro#: [id number] 55 : 1970Acct:[id number] Age/Sex: 52 / FADM Date: 06/18/23 Loc: [facility] Attending Dr: Ivana May MD Ordering Physician: Ivana May MDResults: 1 Negative Date of Service: 06/18/23Follow Up: 1 Year From Orig inal Mammogram Procedure(s): MM tomosynthesis screening BI Accession Number(s): [id number] cc: Ivana May MD EXAMINATION: MM SCREENING DIGITAL BREAST TOMOSYNTHESIS, BILATERAL CLINICAL INFORMATION: Screening. Asymptomatic. COMPARISON: Mammography: This study is compared with prior exams dating back to 2019. TECHNIQUE: Digital breast tomosynthesis is performed in both the craniocaudal and mediolateral oblique views along with computer-aided detection (CAD). Synthesized 2D images are generated from the tomosynthesis. FINDINGS: There are scattered areas of fibroglandular density (ACR BI-RADS breast composition Category b). There are no significant masses, abnormal calcifications, or other abnormalities. MM/MM tomosynthesis screening BI IMPRESSION: No mammographic evidence of malignancy. ASSESSMENT: BI-RADS BI-RADS 1 - Negative RECOMMENDATION: Routine annual mammography screening. 1 year F/U This examination should not preclude the clinical evaluation of a suspicious palpable abnormality. This patient's information was entered into a reminder system with a target due date for their next mammogram. Dictated By: Jo-Ann Arnold MD Signed By: <Electronically signed by Jo-Ann Arnold MD in OV> 07/14/23 1101 DD/ 1505 TD/TT: Optoelectronics Engineer: Ivana May MD IMG BI PROCEDURES Final Res ult * Image-Guided Pap with Age-Based Screening Protocols (08/22/2022 10:15 AM EDT) Comment [facility] Comment: This order for age-based cervical cancer and STI screening follows ACOG guidelines(PB 168, 140, GKZ238). See individual assays for performing site location. Clinical Information: None given [facility] LMP: NONE GIVEN [facility] Prev. PAP: YES [facility] Prev. BX: NONE GIVEN [facility] [employer] [facility] SOURCE: None given [facility] [employer] [facility] Statement Of Adequacy: [facility] Comment: Satisfactory for evaluation. Endocervical/transformation zone component absent. Interpretation/ Result: Negative for intraepithelial lesion or malignancy. [facility] [place] [facility] COMMENT: This Pap test has been evaluated with computer assisted technology. [facility] [place] [facility] [employer] [facility]: [facility] [place] [facility] Comment: WXW, CT(ASCP) CT Screening Location: [address] [address] (Always Message) [facility] Comment: EXPLANATORY NOTE: The Pap is a screening test for cervical cancer. It is not a diagnostic test and is subject to false negative and false positive results. It is most reliable when a satisfactory sample, regularly obtained, is submitted with relevant clinical findings and history, and when the Pap result is evaluated along with historic and current clinical information. HPV nRNA E6/E7 Not Detected Not Detected [facility] Comment: Methodology: Music Leader-Mediated Amplification This assay detects E6/E7 viral messenger RNA (mRNA) from 14 high-risk HPV types (16,18,31,33,35,39,45,51,52,56,58,59,66,68). Cervical sources are required for HPV testing. If a vaginal source from a patient who has had a total hysterectomy with removal of cervix was submitted, please contact the testing laboratory for alternative testing options. For additional information, please refer to http://education.VR1/faq/DFZ895o5 (This link if provided for information/ educational purposes only.) Pap Vial 08/22/2022 10:1 5 AM EDT 08/23/2022 3:08 AM EDT Rachel MCCABE LAB BLOOD ORDERABLES Bee l Result [address], [place] [address] [facility] [address] [place] [id number] * HEPATITIS C AB W/REFL TO HCV RNA, QN, PCR (09/02/2021 8:33 AM EDT) HEPATITIS C ANTIBODY NON-REACT [facility] NON-REACT [facility] INDEX <0.02 <1.00 [facility] Comment: ?? HCV antibody was non-reactive. There is no laboratory ?? evidence of HCV infection. ?? In most cases, no further action is required. However, if recent HCV exposure is suspected, a test for HCV RNA (test code 27149) is suggested. ?? For additional information please refer to http://education.VR1/faq/XJV46q3 (This link is being provided for informational/ educational purposes only.) ?? 09/02/2021 8:33 AM EDT us Ivana May MD HISTORICAL/NON ORDERABLE PILO ALTAMIRANO Final Result [facility] Anywhere [address] from Last 3 Months or Most Recently Relevant to Health Maintenance Insurance [facility] C3 DENTAL-[facility] MEDICAID STAND ADULT Care Teams Purse Maker Relationship Specialty Start Date End Date Ivana May MD [address] [place] [address] [place] [address] PCP - General Internal Medicine 09/16/18
--- OUTSIDE RECORDS SUMMARY | 2024-06-23 17:26 | XMS_ITS | Encounter Summary ---
Author Organization [employer] Address [address] [facility] 7[address] [place] [address] Care Team Providers Care Body And Frame Technician Name Role Phone Ivana May MD Primary Care Provider [phone] Encounter Details Date Type Department Care Team (Late st Contact Info) Description 11/30/2023 Orders Only [facility] [address] [place] [address] Ivana May MD [address] [place] [address] Social History Tobacco Use Types Packs/Day Years Used Date Smoking Tobacco: Never Passive Smoke Exposure: Never Smokeless Tobacco: Never Alcohol Use Standard Drinks/Week Comments Yes 1 (1 standard drink = 0.6 oz pur e alcohol) Housing Stability Answer Date Recorded What is your housing situation today? I have chad wu 06/21/[address] you li [...] on filedocumented in this encounter Care Teams Body And Frame Technician Relationship Specialty Start Date End Date Ivana May MD [address] [place] [id number] PCP - General Internal Medicine 09/16/18 documented as of this encounter
--- OUTSIDE RECORDS SUMMARY | 2024-06-23 17:26 | XMS_ITS | Encounter Summary ---
Author Organization [employer] Address [address] [place] [address] Care Team Providers Care Plasterer Maintenance Name Role Phone Ivana May MD Primary Care Provider [phone] Encounter Details Date Type Department Care Team (Latest Contact Info) Description 11/17/2021 Abstract [facility] CONVERSIONS Dental, Provider, DDS Social [...] on filedocumented in this encounter Care Teams Plasterer Maintenance Relationship Specialty Start Date End Date Ivana May MD [address] [facility] [place] [address] PCP - General Internal Medicine 09/16/18 documented as of this encounter
== END 2024-06-23 14:53 | disposition home or self-care (01) ==
LOC: HO.MAMMO 14:52
PROVIDERS: PCP Internal Medicine; Visit Provider Internal Medicine
DX: Z12.31 Encounter for screening mammogram for malignant neoplasm of breast (principal)
CPT/HCPCS: 77063; 77067

== ENCOUNTER → 2024-06-23 15:00 | Outpatient (BNV) | payer OTHER, SELFPAY | PROVIDERS: PCP Internal Medicine; Visit Provider Internal Medicine | DX: Z12.31 Encounter for screening mammogram for malignant neoplasm of breast (principal) | CPT/HCPCS: 77063; 77067 ==

== ENCOUNTER 2024-12-15 09:42 | Outpatient (REF) | payer OTHER, SELFPAY ==
--- OUTSIDE RECORDS SUMMARY | 2024-12-15 09:15 | XMS_ITS | Encounter Summary ---
Author Organization [employer] Address [address] [place] [address] Care Team Providers Care Mattress Stripper Name Role Phone Ivana May MD Primary Care Provider [phone] Reason for Referral * Consultation (Routine) - Pending Review Specialty Diagnoses / Procedures Referred By She nuñez Referred To Contact Otolaryngology Diagnoses Right ear pain Brittany Magallon MD [address] [place] [address] Phone: tel: fax: Referral ID Status Reason Start Date Expiration Date Visits Requested Visits Authorized [id number] Pending Review Specialty Services Required 12/15/2024 12/15/2025 1 1 Encounter Details Date Type Department Care Team ([facility] st Contact Info) Description 12/15/2024 9:15 AM EDT Office Visit [facility] [address] [place] [address] Brittany Magallon MD [address] [place] [address] Right ear pain (Primary Dx); Tinnitus of right ear Social History Tobacco Use Types Packs/Day Years [...] AM EDT documented as of this encounter Last Filed Vital Signs Vital Sign Reading Time Taken Comments Blood Pressure 118/84 12/15/2024 9:14 AM EDT Pulse 74 12/15/2024 9:14 AM EDT Temperature 36.9 C (98.5 F) 12/15/2024 9:14 AM EDT Respiratory Rate 20 12/15/2024 9:14 AM EDT Oxygen Saturation 98% 12/15/2024 9:14 AM EDT Inhaled Oxygen Concentration - - Weight 80.1 kg (176 lb 9.6 oz) 12/15/2024 9:14 A M EDT Height 159 cm (5' 2.6 ) 12/15/2024 9:14 AM EDT Body Mass Index 31.69 12/15/2024 9:14 AM EDT documented in this encounter Progress Notes * Brittany Magallon MD - 12/15/2024 9:15 AM EDT Subjective Patient ID: Radha Del Toro is a 54 y.o. female who presents for No chief complaint on file.. Chief Complaint Persistent right ear pain for almost 2 months, tinnitus, blocked sinuses History of Present Illness Radha Del Toro presents with persistent right ear pain and tinnitus for almost 2 months. The patient's symptoms began in September with a cough and chest congestion, which resolved after a 7-day course ofantibiotics prescribed in the emergency department. Following the resolution of chest symptoms, the patient developed shooting pain in the right ear that interfered with sleep. A 9-day course of prednisone provided some relief, but the pain persisted.The patient reports ongoing right ear pain, a buzzing noise like tinnitus, and blocked sinuses. Associated symptoms include continuous earwax production and internal ear itchiness. The patient deniesa history of ear infections. The ear pain is exacerbated by eating. The patient experienced vertigo, which resolved after 2-3 weeks. Current treatment includes Mucinex and Carissa, taken once in the morning and once in the evening. Despite these interventions and primary care management, the symptoms persist. The patient reports that previous examination showed a normal tympanic membrane and ear canal without visible earwax. The persistent symptoms have prompted a referral to an ENT specialist. The patient has not tried acupuncture but is open to considering it after the ENT consultation. There is no mention of the ear issues impacting work or daily activities beyond sleep disturbance. Medical History - Emergency room visit for chest congestion and nasal drip - Vertigo, resolved after 2-3 weeks Medications and Supplements - Antibiotics - 7-day course for chest congestion in September - Prednisone - 9-day course for ear pain - Mucinex - One in the morning and one in the evening - Carissa - One in the morning and one in the evening Review of Systems HEENT: Positive for persistent right ear pain, tinnitus, internal ear itchiness, blocked sinuses, and nasal drip. Negative for fever. Respiratory: Positive for chest congestion. Neurological: Positive for vertigo (resolved). Review of Systems Objective Visit Vitals BP 118/84 Pulse 74 Temp 98.5 ??F (36.9 ??C) (Oral) Resp 20 Ht 5' 2.6 (1.59 m) Wt 176 lb 9.6 oz (80.1 kg) SpO2 98% BMI 31.69 kg/m?? Smoking Status Never BSA 1.88 m?? Physical Exam Constitutional: General: She is not in acute distress. Appearance: She is not ill-appearing. HENT: Head: Normocephalic and atraumatic. Right Ear: Tympanic membrane, ear canal and external ear normal. There is no impacted cerumen. Left Ear: Tympanic membrane, ear canal and external ear normal. There is no impacted cerumen. Nose: No congestion. Pulmonary: Effort: Pulmonary effort is normal. No respiratory distress. Breath sounds: Normal breath sounds. Musculoskeletal: Cervical back: Normal range of motion. Neurological: General: No focal deficit present. Mental Status: She is alert. Psychiatric: Mood and Affect: Mood normal. Assessment/Plan Problem List Items Addressed This Visit Right ear pain - Primary Relevant Orders Referral to ENT Other Visit Diagnoses Tinnitus of right ear Relevant Orders CBC auto differential Ferritin Iron And Total Iron Binding Capacity Vitamin B12 (Cobalamin) and Folate Panel, Serum TSH W/Reflex to FT4 Radha Del Toro presents with persistent right ear pain, tinnitus, and sinus congestion for almost 2months, following a chest infection treated with antibiotics in September. Persistent Right Ear Pain and Tinnitus Assessment: Patient reports right ear pain and tinnitus for almost 2 months, following a chest infection in September. Initial treatment with antibiotics resolved chest congestion but was followed by ear pain. A course of prednisone provided temporary relief. Recent examination showed normal tympanic membrane and ear canal. Differential diagnoses include Eustachian tube dysfunction or temporomandibular joint (TMJ) disorder. Patient also experienced vertigo, which resolved after 2-3 weeks, suggestingpossible inner ear inflammation. Previous treatments, including Mucinex and Carissa, have not provided significant relief. Plan: - Refer to Ear, Nose, and Throat (ENT) specialist for further evaluation and management - Order laboratory tests: - Iron levels - Vitamin B12 levels - Thyroid function tests - Continue current medications: - Mucinex, frequency: once in the morning and once in the evening - Carissa, frequency: once in the morning and once in the evening - Await ENT evaluation before considering additional interventions - Follow up after ENT consultation and laboratory results are available documented in this encounter Plan of Treatment Scheduled Orders Name Type Priority Associated Diagnoses Orde r Schedule CBC auto differential Lab Routine Tinnitus of right ear Expected: 12/15/2024 (Approximate), Expires: 12/15/2025 Ferritin Lab Routine Tinnitus of right ear Expected: 12/15/2024 (Approximate), Expires: 12/15/2025 Iron And Total Iron Binding Capacity Lab Routine Tinnitus of right ear Expected: 12/15/2024, Expires: 12/15/2025 Vitamin B12 (Cobalamin) and Folate Panel, Serum Lab Routine Tinnitus of right ear Expected: 12/15/2024 (Approximate), Expires: 12/15/2025 TSH W/Reflex to FT4 Lab Routine Tinnitus of right ear Expected: 12/15/2024 (Approximate), Expires: 12/15/2025 Scheduled Referrals Name Type Priority Associated Diagnoses Orde r Schedule Referral to ENT Outpatient Referral Routine Right ear pain Expected: 12/15/2024 (Approximate), Expires: 12/15/2025 documented as of this encounter Visit Diagnoses Diagnosis Right ear pain- Primary Unspecified otalgia Tinnitus of right ear documented in this encounter Care Teams Mattress Stripper Relationship Specialty Start Date End Date Ivana May MD [address] [place] [id number] PCP - General Internal Medicine 09/16/18 documented as of this encounter
--- OUTSIDE RECORDS SUMMARY | 2024-12-15 11:07 | XMS_ITS | Encounter Summary ---
Author Organization [employer] Address [address] [place] [address] Care Team Providers Care Pneumatic Jack Operator Name Role Phone Ivana May MD Primary Care Provider [phone] Reason for Visit * Reason Onset Date Comments TRIAGE 12/12/2024 Encounter Details Date Type Department Care Team ([facility] Contact Info) Description 12/12/2024 Telephone [facility] MED & PEDS [address] [place], [place] [phone] Ivana May MD [address] [place] [address] TRIAGE Social History Tobacco Use Types Packs/Day Years [...] AM EDT documented as of this encounter Miscellaneous Notes * Telephone Encounter - Meliza Vargas RN - 12/12/2024 1:29 PM EDT Called pt. She states that she has been having pain in her ear x1 month. Initially she started out with a cough and was put on Antibiotics. Pt. Finished her course of antibiotics but still had a cough. Pt. Went to Walk in and was given a course of Prednisone. Pt. Continues to have ringing in ears bilateral and ears blocked. Right ear painful. Pt. Was taking Mucinex with no relief. No fever. Pt. Wants to be seen by Provider in [facility]. Appt. Given for 12/15/24 at 915am in [facility]. Protocol Used: Ear - Congestion (Adult) Protocol-Based Disposition: See in Office or Video Visit Today- appt. Made for 12/15/24 at 915am in [facility] Positive Triage Questions: * Patient wants to be seen * Ear congestion lasts > 3 days and no improvement after using Care Advice (Exception: Ear congestion is a chronic symptom.) * All higher-acuity triage questions were negative Care Advice Discussed: * Ear Congestion - Causes * Ear Congestion - Treatment * Treatment - Chewing and Swallowing * Nasal Decongestants for Ear Congestion * Antihistamine Medicines for Ear Congestion * Telephone Encounter - Antonia Dudley - 12/12/2024 1:07 PM EDT Pt states has ear pain x 1 week, pt states was seen at an urgent care and given meds, symptoms not improving. Pt was offered WIC and given days and times, pt refused to go to [place]. Requesting to be seen at [facility]. Pls call pt documented in this encounter Plan of Treatment Not on file documented as of this encounter Visit Diagnoses Not on filedocumented in this encounter Care Teams Pneumatic Jack Operator Relationship Specialty Start Date End Date Ivana May MD [address] [place] [address] PCP - General Internal Medicine 09/16/18 documented as of this encounter
--- OUTSIDE RECORDS SUMMARY | 2024-12-15 11:07 | XMS_ITS | Encounter Summary ---
Author Organization [employer] Address [address] [place] [address] 7 [place] [address] Care Team Providers Care Pharmaceutical Botanist Name Role Phone Ivana May MD Primary Care Provider [phone] Encounter Details Date Type Department Care Team ([facility] st Contact Info) Description 06/07/2022 Orders Only [facility] CH[facility] MED & PEDS [address] [place] [address] Terese Ricks LPN Social History Tobacco Use [...] PM EST Narrative 06/14/2022 12:24 PM EST [facility]'s [address] [place] [address] Mammography Report Signed Patient: Radha Del Toro MR#: [id number] 56 : 1970 Acct:[id number] Age/Sex: 51 / F ADM Date: 06/12/22 Loc: HO.MAMMO Attending Dr: Ivana May MD Ordering Physician: Ivana May MD Results: 2 Benign Findings Date of Service: 06/12/22 Follow Up: 1 Year From Orig ina Mammogram Procedure(s): MM tomosynthesis screening BI Accession Number(s): [id number] cc: Ivana May MD EXAMINATION: MM SCREENING [...] date for their next mammogram. Dictated By: Kali Luo MD Signed By: <Electronically signed by Kali Luo MD in OV> 06/14/22 1221 DD/ 1512 TD/TT: Membership Sales Advisor: FREIRE Procedure Note Donotuseinterpreter, Image - 06/14/2022 [facility] [address] [place] [address] Mammography Report Signed Patient: Radha Del Toro#: [id number] 55 : 1970Acct:[id number] Age/Sex: 51 / FADM Date: 06/12/22 Loc: HO.MAMMO Attending Dr: Ivana May MD Ordering Physician: Ivana May MDResults: 2 Benign Findings Date of Service: 06/12/22Follow Up: 1 Year From Orig ina Mammogram Procedure(s): MM tomosynthesis screening BI Accession Number(s): [id number] cc: Ivana May MD EXAMINATION: MM SCREENING [...] date for their next mammogram. Dictated By: Kali Luo MD Signed By: <Electronically signed by Kali Luo MD in OV> 06/14/22 1221 DD/ 1512 TD/TT: Membership Sales Advisor: FREIRE [facility] External Provider IMG BI PROCEDURES Final Result documented in this encounter Visit Diagnoses Not on filedocumented in this encounter Care Teams Pharmaceutical Botanist Relationship Specialty Start Date End Date Ivana May MD [address] [place] [address] PCP - General Internal Medicine 09/16/18 documented as of this encounter
--- OUTSIDE RECORDS SUMMARY | 2024-12-15 11:07 | XMS_ITS | Clinical Summary ---
Author Organization [employer] Address [address] [place] [address] 7 [place] [address] Care Team Providers Care Ore Buyer Name Role Phone Ivana May MD Primary [...] times a day 118 mL 4 Active cholecalciferol VITAMIN D (Vitamin D-3) 50 MCG (2000 UT) capsule TAKE ONE CAPSULE EVERY DAY 90 capsule 1 4 Active Allergy Relief 180 MG tabletIndicatio ns:Other seasonal allergic rhinitis TAKE ONE TABLET EVERY DAY 90 tablet 1 5 Active Active Problems Problem Noted Date Diagnosed Date Right ear pain 12/15/2024 Mixed hyperlipidemia 09/07/2022 Gastroesophageal reflux disease without esophagi tis 01/01/2018 Plantar fasciitis 01/01/2018 Varicose veins of lower extremity 01/01/2018 Abnormal perimenopausal bleeding 01/01/2018 Encounters Date Type Department Care Team Description 12/15/2024 9:15 AM EDT Office Visit [facility] MED & PEDS [address] [place] [address] Brittany Magallon MD Right ear pain (Primary Dx); Tinnitus of right ear 12/15/2024 Travel 12/12/2024 Telephone [facility] MED & PEDS [address] [place] [address] Ivana May MD TRIAGE 09/28/2024 Refill [facility] [address] [place] [address] Ivana May MD Other seasonal allergic rhinitis from Last 3 Months Immunizations Immunization Administration Dates Next Due Influenza Injectable Quadriv [...] Mass Index 31.69 12/15/2024 9:14 AM EDT Plan of Treatment Health Maintenance Due Date Last Done Comments CT Colonography 1970 Colonoscopy 1970 Colorectal Cancer Screening 1970 Depression Screening 1970 FIT DNA/Cologuard 1970 FIT 1970 FOBT 1970 HIV Screening 1970 Sigmoidoscopy 1970 Disability Screening 1969 Alcohol/Substance Use Screening 1981 DTaP/Tdap/Td Vaccines [...] 09/01/19 23, 11/17/2021, 03/15/2021, Additional history exists SDOH Screening 06/20/2024 06/21/2023 COVID-19 Vaccine ( season) 2024 02/18/2022, 03/06/2021, 08/18/2020, Additional history exists Influenza Vaccine (#1) 2024 , 01/18/2023, 01/12/2022, Additional history exists Pap Smear 08/22/2025 08/22/2022 Tobacco Screening 12/15/2025 12/15/2024 Mammogram 06/23/2026 06/23/2024, 06/07, 06/12/2022, Additional history exists Cervical Cancer Screening 08/23/2027 HPV/Cotest 08/23/2027 08/22/2022, 02/26/2018 RSV Patients and Patients Aged 60 years or older (1 - 1-dose 75+ series) 2044 Hepatitis C Screening Completed 09/02/2021 Zoster Vaccines Completed 01/02/2022, 09/01/2021 HIB Vaccines Aged Out No longer eligi [...] patient's age to complete this topic Meningococcal B Vaccine Aged Out No l onger eligible based on patient's age to complete [...] Comments BI MAMMOGRAM SCREENING TOMOSYNTHESIS BILATERAL Routine 06/23/2024 3:00 PM EDT PROPHYLAXIS - ADULT Routine 08/31/2022 1 :00 PM EDT BITEWING - SINGLE RADIOGRAPHIC IMAGE Routine 08/31/2022 1:00 PM EDT IMAGE-GUIDED PAP W/AGE BASED SCR PROTOCOLS Routine 08/22/2022 10:15 AM EDT Cervical cancer screening PERIODIC ORAL EVALUATION - ESTABLISHED PATIENT Routine 11/17/2021 12:00 AM EDT ZZZ HISTORICAL HEPATITIS C AB W/REFL TO HCV RNA, QN, PCR Routine 09/02/2021 8:33 AM EDT INTRAORAL - COMPLETE SERIES OF RADIOGRAPHIC IMAGES Routine 12/17/2014 12:00 AM EDT from Last 3 Months or Most Recently Relevant to Health Maintenance Results * BI Mammogram Screening Tomosynthesis Bilateral (06/23/2024 3:00 PM EDT) Anatomical Region Laterality Modality Breast Bilateral Mammography 06/23/2024 3:00 PM EDT Narrative 06/30/2024 3:26 PM EDT [place] [facility] [address] [place] [address] Mammography Report Signed Patient: Radha Del Toro MR#: [id number] 55 : 1970 Acct:[id number] Age/Sex: 53 / F ADM Date: 06/23/24 Loc: [facility] Attending Dr: Ivana May MD Ordering Physician: Ivana May MD Results: 1 Negative Date of Service: 06/23/24 Follow Up: 1 Year From Orig inal Mammogram Procedure(s): MM tomosynthesis screening BI Accession Number(s): [id number] cc: Ivana May MD EXAMINATION: MM SCREENING DIGITAL BREAST TOMOSYNTHESIS, BILATERAL CLINICAL INFORMATION: Screening. Asymptomatic. COMPARISON: Mammography: Comparison is made with available priors TECHNIQUE: Digital breast mammography with tomosynthesis is performed in both the craniocaudal and mediolateral oblique views along with computer-aided detection (CAD). FINDINGS: There are scattered areas of fibroglandular [...] target due date for their next mammogram. Electronically signed by: Autumn Anthony DO 06/30/2024 03:23 PM EDT Dictated By: Autumn Anthony DO Signed By: <Electronically signed by Autumn Anthony DO in OV> 06/30/24 1523 DD/ 1500 TD/TT: 06/23/24 1525 Sports Specialist: Procedure Note Donotuseinterpreter, Image - 06/30/2024 [facility] [address] [place] [address] Mammography Report Signed Patient: Radha Del Toro#: [id number] 55 : 1970Acct:[id number] Age/Sex: 53 / FADM Date: 06/23/24 Loc: HO.MAMMO Attending Dr: Ivana May MD Ordering Physician: Ivana May MDResults: 1 Negative Date of Service: 06/23/24Follow Up: 1 Year From Orig inal Mammogram Procedure(s): MM tomosynthesis screening BI Accession Number(s): [id number] cc: Ivana May MD EXAMINATION: MM SCREENING DIGITAL BREAST TOMOSYNTHESIS, BILATERAL CLINICAL INFORMATION: Screening. Asymptomatic. COMPARISON: Mammography: Comparison is made with available priors TECHNIQUE: Digital breast mammography with tomosynthesis is performed in both the craniocaudal and mediolateral oblique views along with computer-aided detection (CAD). FINDINGS: There are scattered areas of fibroglandular [...] target due date for their next mammogram. Electronically signed by: Autumn Anthony DO 06/30/2024 03:23 PM EDT RP Dictated By: Autumn Anthony DO Signed By: <Electronically signed by Autumn Anthony DO in OV> 06/30/24 1523 DD/ 1500 TD/TT: 06/23/24 1525 Sports Specialist: us Ivana May MD IMG BI PROCEDURES Final Res ult * Image-Guided Pap with Age-Based Screening Protocols (08/22/2022 10:15 AM EDT) Comment [facility] Comment: This order for age-based cervical cancer and STI screening follows ACOG guidelines(PB 168, 140, JBO364). See individual assays for performing site location. Clinical Information: None given [facility] LMP: NONE GIVEN [facility] Prev. PAP: YES [facility] Prev. BX: NONE GIVEN [facility] SOURCE: None given [facility] Statement Of Adequacy: [facility] Comment: Satisfactory for evaluation. Endocervical/transformation zone component absent. Interpretation/ Result: Negative for intraepithelial lesion or malignancy. [facility] COMMENT: This Pap test has been evaluated with computer assisted technology. [facility] [employer] [facility] [facility]: [facility] Comment: WXW, CT(ASCP) CT Screening Location: [address] [address] (Always Message) [facility] Comment: EXPLANATORY NOTE: The Pap is a [...] HPV nRNA E6/E7 Not Detected Not Detected [facility] Comment: Methodology: Customer Account Executive-Mediated Amplification This assay detects E6/E7 viral messenger RNA (mRNA) from 14 high-risk HPV types (16,18,31,33,35,39,45,51,52,56,58,59,66,68). Cervical sources are required for HPV testing. If a vaginal source from a patient who has had a total hysterectomy with removal of cervix was submitted, please contact the testing laboratory for alternative testing options. For additional information, please refer to http://education.Tripeese/faq/WBD591x4 (This link if provided for information/ educational purposes only.) Pap Vial 08/22/2022 10:1 5 AM EDT 08/23/2022 3:08 AM EDT us Rachel Chavira [facility]LOOD ORDERABLES Bee croft Result [address], [place] [address] [facility] [address] [place] [phone] * HEPATITIS C AB W/REFL TO HCV RNA, QN, PCR (09/02/2021 8:33 AM EDT) HEPATITIS C ANTIBODY NON-REACT [facility] NON-REACT [facility] INDEX <0.02 <1.00 [facility] Comment: HCV antibody was non-reactive. There is no laboratory evidence of HCV infection. In most cases, no further action is required. However, if recent HCV exposure is suspected, a test for HCV RNA (test code 27767) is suggested. For additional information please refer to http://Academia.edu.Tripeese/faq/KEO58r9 (This link is being provided for informational/ educational purposes only.) 09/02/2021 8:33 AM EDT us Ivana May MD HISTORICAL/NON ORDERABLE PILO ALTAMIRANO Final Result [facility] [address] from Last 3 Months or Most Recently Relevant to Health Maintenance [place] [address] [address] [place] [address] 3 [facility] MED[facility] STAND ADULT Care Teams Ore Buyer Relationship Specialty Start Date End Date Ivana May MD [address] [place], [place] [address] [place] [address] PCP - General Internal Medicine 09/16/18
--- OUTSIDE RECORDS SUMMARY | 2024-12-15 11:07 | XMS_ITS | Encounter Summary ---
Author Organization [employer] Address [address] [facility] 7t [place] [address] Care Team Providers Care Land Surveyor Manager Name Role Phone Ivana May MD Primary Care Provider [phone] Encounter Details Date Type Department Care Team (Latest Contact Info) Description 12/15/2024 Travel Social History Tobacco Use Types Packs/Day Years [...] on filedocumented in this encounter Care Teams Land Surveyor Manager Relationship Specialty Start Date End Date Ivana May MD [address] [place] [address] PCP - General Internal Medicine 09/16/18 documented as of this encounter
--- OUTSIDE RECORDS SUMMARY | 2024-12-15 11:07 | XMS_ITS | Encounter Summary ---
Author Organization [employer] Address [address] [facility] 7 [place] [address] Care Team Providers Care Hazardous Substances Scientist Name Role Phone Ivana May MD Primary Care Provider [phone] Encounter Details Date Type Department Care Team (Late st Contact Info) Description 11/30/2023 Orders Only [facility] [address] [place] [address] Ivana May MD [address] [place] [address] Social History Tobacco Use Types Packs/Day Years [...] on filedocumented in this encounter Care Teams Hazardous Substances Scientist Relationship Specialty Start Date End Date Ivana May MD [address] [place] [address] PCP - General Internal Medicine 09/16/18 documented as of this encounter
--- OUTSIDE RECORDS SUMMARY | 2024-12-15 11:07 | XMS_ITS | Encounter Summary ---
Author Organization [employer] [facility] Address [address] [place] [address] Care Team Providers Care Health Navigator Name Role Phone Ivana May MD Primary Care Provider [phone] Encounter Details Date Type Department Care Team [...] on filedocumented in this encounter Care Teams Health Navigator Relationship Specialty Start Date End Date Ivana May MD [address] [place] [address] PCP - General Internal Medicine 09/16/18 documented as of this encounter
--- OUTSIDE RECORDS SUMMARY | 2024-12-15 11:07 | XMS_ITS | Encounter Summary ---
Author Organization [employer] [facility] Address [address] [place] [address] Care Team Providers Care Advertising Consultant Name Role Phone Ivana May MD Primary Care Provider [phone] Encounter Details Date Type Department Care Team [...] on filedocumented in this encounter Care Teams Advertising Consultant Relationship Specialty Start Date End Date Ivana May MD [address] [place] [address] PCP - General Internal Medicine 09/16/18 documented as of this encounter
--- OUTSIDE RECORDS SUMMARY | 2024-12-15 11:07 | XMS_ITS | Encounter Summary ---
Author Organization [employer] Address [address] [place] [address] [place] [address] Care Team Providers Care Community Service Aide Name Role Phone Ivana May MD Primary Care Provider [phone] Encounter Details Date Type Department Care Team ([facility] st Contact Info) Description 07/12/2023 Orders Only [facility] CH[facility] MED & PEDS [address] [place], [place] [id number] Ivana May MD [address] [place] [address] Blurry vision, bilateral (Primary Dx) Social History [...] disturbances documented in this encounter Care Teams Community Service Aide Relationship Specialty Start Date End Date Ivana May MD [address] [place] [address] PCP - General Internal Medicine 09/16/18 documented as of this encounter
[2024-12-15 14:56] LABS: MANUAL DIFF FLAG NO
[2024-12-15 15:19] LABS: Hematocrit 38.7 % (37.0-47.0); Hemoglobin 12.3 g/dl (12.0-16.0); Imm Gran Abs Auto 0.01 X10*3/uL (0.00-0.03); Imm Gran Pct Auto 0.1 % (0.0-0.4); Lymphocytes Absolute Auto 2.1 X10*3/uL (1.2-4.9); Mean Corpuscular HGB Conc 31.8 g/dl (31.0-35.0); Mean Corpuscular Hemoglobin 29.9 pg (27.0-33.0); Mean Corpuscular Volume 94.2 fL (80.0-98.0); NRBC Abs Auto 0.000 X10*3/uL (0.0-0.012); NRBC Pct Auto 0.0 /100WBC (0.0-0.2); Platelet Count 284 X10*3/uL (160-400); Red Blood Count 4.11 X10*6/uL (4.20-5.50); White Blood Count 7.1 X10*3/uL (4.8-10.8)
[2024-12-15 15:39] LABS: Iron 120 mcg/dL (30-160); Percent Iron Saturation 40 % (15-50); Total Iron Binding Capacity 301 mcg/dL (228-428); Unsaturated Iron Binding 181 ug/dL
[2024-12-15 16:04] LABS: Ferritin 70 ng/mL (10-250)
[2024-12-15 16:12] LABS: Folate 14.4 ng/mL (> or = 4.0); Vitamin B12 417 pg/mL (200-900)
== END 2024-12-15 09:43 | disposition home or self-care (01) ==
LOC: HO.CHCLDS 09:42
PROVIDERS: Visit Provider Family Medicine
DX: H93.11 Tinnitus, right ear (principal)
CPT/HCPCS: 36415; 82607; 82728; 82746; 83540; 84443; 85025